=== PATIENT | male | born 1990 | race Caucasian/White ===

== ENCOUNTER 2023-07-05 16:57 | Emergency (ER) | payer BC, SELFPAY ==
[2023-07-05 16:59] VITALS: BP 117/84; PULSE 77; RESP 16; TEMP 36.4; O2SAT 99; BMI 21.6
[2023-07-05 18:56] LABS: Absolute Lymphocyte Count 1.55 X10^3/uL (0.83-4.51); Absolute Neutrophil Count 2.1 X10^3/uL (2.0-7.7); Basophil# 0.02 X10^3/uL; Basophil% 0.5 % (0-1); Eosinophil# 0.06 X10^3/uL; Eosinophils% 1.5 % (0-5); Hemoglobin 16.4 g/dL (13.0-16.5); Lymphocyte # 1.55 X10^3/ul (0.83-4.51); Lymphocyte % 37.5 % (19-41); Mean Corp Hgb Conc 34.9 g/dL (32-36); Mean Corpuscular Hgb 29.4 pg (27.0-32.0); Mean Corpuscular Volume 84.2 fL (80-94); Mean Platelet Vol. 9.1 fl (6.2-12.0); Monocyte# 0.44 X10^3/uL; Monocyte% 10.7 % (0-10); NRBC Flagged by Analyzer 0 % (0-5); Neutrophil # 2.05 X10^3/uL (2.7-7.7); Neutrophil % 49.6 % (47-70); Platelet Count 171 K/mm3 (150-450); RBC Distribution Width CV 11.7 % (11.6-14.6); RBC Distribution Width SD 35.5 fl (35.1-43.9); Red Blood Count 5.58 M/mm3 (4.6-6.2); White Blood Count 4.1 K/mm3 (4.4-11.0)
[2023-07-05 19:15] LABS: ALB/GLOB Ratio 1.2 RATIO (0.9-2.4); AST(SGOT) 31 U/L (15-37); Alanine Aminotransfer ALT/SGPT 42 U/L (16-61); Alkaline Phosphatase 72 U/L (45-117); Anion Gap 4 (5-15); BUN 10 mg/dL (7-18); BUN/Creat Ratio 10.6 RATIO (10-20); Chloride 109 mmol/L (98-107); Creatinine, Serum 0.94 mg/dL (0.70-1.30); EST Glomerular Filtration Rate 99 mL/min (>60); Est Glom Filt Rate - Afr Amer 120 mL/min (>60); Estimated Creatinine Clearance 114.41 ml/min; Globulin 3.2 g/dL (2.2-4.2); Glucose 97 mg/dL (74-106); Lipase 50 U/L (13-75); Potassium 4.2 mmol/L (3.5-5.1); Protein, Total 7.2 g/dL (6.4-8.2); Sodium Level 142 mmol/L (136-145)
--- NOTE | 2023-07-05 19:26 | EDS_ITS ---
HPI HPI - GI History of Present Illness Chief Complaint: Abd Pain Narrative Narrative: 32-year-old male presenting with abdominal cramping, nausea, vomiting, diarrhea. His symptoms ultimately improved. He states that every work had the stomach flu . Patient states he developed it on . Initially had fevers and chills and bodyaches but this resolved. He does state that he was initially constipated on Tuesday and took some stool softeners and laxatives and then send not having bowel movements the last couple of days. His abdominal pain initially improved but then got worse again. He states his pain has been worse today than it had been and went from a 4 to a 7. Patient denies any medical problems with exception of A-fib that has had since he was a kid. He is on a blood thinner rate control. Denies a surgical history. Is allergic to a nything. [facility] Medical History A-fib Allergy/AdvReac Type Severity Reaction Status Date / Time No Known Allergies Allergy Verified 07/05/23 17:00 Social History Smoking Status: Unknown if ever smoked ROS ROS ED Constitutional Constitutional ED: Reports chills and fever(s); Denies sweats Eyes Eyes: Denies blurry vision or change in vision ENT ENT ED: Denies ear pain or sore throat Cardiovascular Cardiovascular: Denies chest pain, palpitations or racing heartbeat Respiratory/Chest Respiratory/Chest: Reports cough; Denies dyspnea or sputum Gastrointestinal Gastrointestinal: Reports diarrhea, nausea and vomiting; Denies abdominal pain or constipation Genitourinary Genitourinary ED: Denies dysuria, hematuria or urinary frequency Musculoskeletal Musculoskeletal: Denies arthralgias, myalgias or neck pain Integumentary Denies abscess, Abrasions or rash Neurologic Neurologic: Denies headache(s), paresthesias or weakness Psychiatric Psychiatric: Denies anxiety, depression, suicidal ideation or suicidal thoughts Endocrine Endocrinology: Denies polydipsia or polyuria EXAM Physical Exam Const Vital Signs: 07/05/23 16:59 Temperature 97.6 F L Temperature Source Temporal Pulse Rate 77 Respiratory Rate 16 Blood Pressure 117/84 H Blood Pressure Mean 95 Pulse Ox 99 Oxygen Delivery Method Room Air Positive well nourished General Appearance ED: NAD; Negative for pallor HEENT Reports moist mucous membranes normocephalic and atraumatic Eyes PERRL and EOMs intact bilaterally Resp normal respiratory effort Auscultation: Negative for rales, rhonchi or wheezes Cardio regular rate and regular rhythm GI non-tender, non-distended and no masses Neuro CN's II-XII intact bilaterally Sensorium / Orientation: alert Motor Exam: strength 5/5 throughout Psych mental status grossly normal and thought process normal Skin General Skin Exam: Negative for jaundice or pallor MDM MDM MDM Narrative Medical decision making narrative: Well-appearing 32-year-old male with abdominal pain, fever, chills, nausea, vomiting which is mostly resolved. He had a constipation issue which he resolved by taking stool softeners and laxatives. Differential includes viral gastroenteritis, constipation, acute cholecystitis, left pancreatitis, dehydration, anemia, electro abnormalities. CBC was obtained to assess white blood cell count, hemoglobin, platelets. CMP to assess liver function, electrolytes, glucose. Lipase to assess for pancreatitis. I ordered Bentyl, Pepcid, Toradol, Zofran for the patient but he declines any states this is I walked into the room he felt a lot better and became hungry . Patient states he does not need anything for home. He states he wishes to come to the emergency room. I counseled him that his blood work is all normal and healthy kidneys anything further. He states I am going to eat a steak . Discharged home in stable condition. Impression: 1. Viral gastroenteritis 2. Leukopenia Lab Data Attestation: I reviewed the patient's lab results. Labs: Laboratory Results - last 24 hr 07/05/23 18:46 WBC 4.1 L RBC 5.58 Hgb 16.4 Hct 47.0 MCV 84.2 MCH 29.4 MCHC 34.9 RDW Std Deviation 35.5 RDW Coeff of Yariel 11.7 Plt Count 171 MPV 9.1 Immature Gran % (Auto) 0.200 Neut % (Auto) 49.6 Lymph % (Auto) 37.5 [place] % (Auto) 10.7 H Eos % (Auto) 1.5 Baso % (Auto) 0.5 Absolute Neuts (auto) 2.1 Absolute Lymphs (auto) 1.55 Nucleated RBC % 0 Sodium 142 Potassium 4.2 Chloride 109 H Carbon Dioxide 29.0 Anion Gap 4 L BUN 10 Creatinine 0.94 Estim Creat Clear Calc 114.41 Est GFR (MDRD) Af Amer 120 Est GFR (MDRD) Non-Af 99 BUN/Creatinine Ratio 10.6 Glucose 97 Calcium 9.0 Total Bilirubin 0.50 AST 31 ALT 42 Alkaline Phosphatase 72 Total Protein 7.2 Albumin 4.0 Globulin 3.2 Albumin/Globulin Ratio 1.2 Lipase 50 Discharge Plan Triage Chief Complaint: Abd Pain ED Provider: Kaushik Cunningham Dx/Rx/DC Orders Instructions: ED Gastroenteritis, Viral (Adult) Primary Care Provider: Care Physician,No Primary Referrals: Care Physician,No Primary [Primary Care Provider] - Disposition Disposition: Home, Self Care
--- NOTE | 2023-07-05 19:34 | ED.RN ---
pt refused all meds and states as soon as the doctor left the room i felt better. i probably shouldn't even have came. dr. nazario updated.
[2023-07-05 19:35] VITALS: BP 120/74; PULSE 81; RESP 16; TEMP 36.1; O2SAT 99
== END 2023-07-05 19:35 | disposition home or self-care (01) ==
PROVIDERS: Emergency Provider Student in an Organized Health Care Education/Training Program; Visit Provider Student in an Organized Health Care Education/Training Program
DX: A08.4 Viral intestinal infection, unspecified (principal); D72.819 Decreased white blood cell count, unspecified
CPT/HCPCS: 80053; 83690; 85025; 99283; J7030; A4216; J2405; J3490